=== PATIENT | male | born 1995 | race Two or more races ===

== ENCOUNTER 2021-09-15 17:22 | Emergency (ER) | payer OTHER ==
[~2021-09-15] VITALS: Ht 177.8 cm; Wt 81.6 kg
== END 2021-09-15 21:34 | disposition home or self-care (01) ==
LOC: ER 17:22
DX: U07.1 COVID-19 (principal)

== ENCOUNTER 2022-02-07 03:05 | Outpatient (CLI) | payer OTHER | END 2022-02-07 23:00 | disposition home or self-care (01) | LOC: LAB 03:05 | PROVIDERS: ATTEND Obstetrics & Gynecology | DX: Z20.828 Contact with and (suspected) exposure to other viral communicable diseases (principal); Z20.822 Contact with and (suspected) exposure to COVID-19 ==